=== PATIENT | male | born 1985 | race African-American/Black ===

== ENCOUNTER 2021-06-02 05:49 | Emergency (ER) | payer SELFPAY ==
[~2021-06-02] VITALS: Ht 170.2 cm; Wt 95.0 kg
[2021-06-02 06:15] VITALS: BP 138/90
--- NOTE | 2021-06-02 06:16 | PHYS DOC ---
General Adult EDM: Chief Complaint: DENTAL PROBLEM HPI: HPI: Patient is a 36 year old male who presents with right lower dental pain, he has had dental pain intermittently for some time, he has had a broken tooth for a few years. He reports that for the past few days he is having difficulty sleeping secondary to pain. He is used [id number] topical anesthetic, he has not taken any oral medication. No facial swelling, no gingival swelling, no drainage, no fever, no sore throat, voice changes, difficulty breathing, difficulty swallowing. He has contacted his dentist, and they are supposed to call him back to arrange an appointment for dental extraction, he has not yet heard back from them. He reports that the tooth has been broken for several years, and it was reportedly broken during another dental extraction procedure. Review of Systems: Review of Systems: Constitutional: Denies fever or chills. [] HENT: Denies nasal congestion or sore throat. Right lower dental pain. Respiratory: Denies cough or shortness of breath. [] Cardiovascular: Denies chest pain Musculoskeletal: Denies neck pain, back pain or joint pain. [] Integument: Denies rash. [] Neurologic: Denies headache or weakness Heart Score: C/O Chest Pain: No Risk Factors: Risk Factors: DM, Current or recent (<one month) smoker, HTN, HLP, family history of CAD, obesity. Risk Scores: Score 0 - 3: 2.5% MACE over next 6 weeks - Discharge Home Score 4 - 6: 20.3% MACE over next 6 weeks - Admit for Clinical Observation Score 7 - 10: 72.7% MACE over next 6 weeks - Early Invasive Strategies Physical Exam: PE: Constitutional: Well developed, well nourished, no acute distress, non-toxic appearance. [] HENT: Normocephalic, atraumatic, oropharynx is patent and clear, uvula midline, no facial or oral edema. No tongue edema. Right lower premolar with caries and partially broken tooth, no surrounding gingival erythema or edema, no drainage, no percussion tenderness. Mucous membranes are moist. No drooling or trismus. He is controlling his secretions well. His speech is clear and fluent, voice is not muffled. TMs are clear bilaterally. Eyes: Conjunctiva normal, no discharge. [] Neck: Trachea midline, neck is supple, no pathologic adenopathy, full range of motion Cardiovascular:Heart rate regular rhythm, no edema, warm and well-perfused Lungs & Thorax: Bilateral breath sounds clear to auscultation, no rales, rhonchi or wheezes, no stridor, equal chest rise, speaks in full and clear sentences Skin: Warm, dry, no erythema, no rash. [] Back: No tenderness, no CVA tenderness. [] Extremities: No limb deformity, gait is steady and nonantalgic Neurologic: Awake alert, oriented x3, no facial asymmetry, speech is clear and fluent, gross motor intact, gait is steady Psychologic: Affect normal, judgement normal, mood normal. [] EKG: EKG: [] Radiology/Procedures: Radiology/Procedures: [] Course & Med Decision Making: Course & Med Decision Making There is no indication for emergent imaging, labs at this time based on current clinical presentation. I ordered a dose of oral ibuprofen for him. He drove here, so no sedating medications could be given. I discussed that he needs to follow-up with his dentist for further evaluation treatment, definitive care. He is amenable to being prescribed hydrocodone for severe pain, he is also given a prescription for penicillin. I sent these to his preferred pharmacy. Home care instructions are given, return precautions are given. He verbalizes understanding. Uziel Disclaimer: Uziel Disclaimer: This electronic medical record was generated, in whole or in part, using a voice recognition dictation system. Departure Departure Impression: Primary Impression: Pain due to dental caries Disposition: 01 HOME / SELF CARE / HOMELESS Condition: GOOD Patient Instructions: Dental Caries, Dental Pain Additional Instructions: Take the full course of antibiotics as directed. Use the pain medication for se wisam pain only. You may take [id number] Tylenol or ibuprofen as needed for mild or more moderate pain. Return to the ER for severe facial swelling, temperature 100.4 or higher, difficulty breathing, inability to control secretions or problems swallowing or for any other concerns. Please follow-up with your dentist for further evaluation and treatment of your pain and of your cavity. Scripts Penicillin V Potassium (PENICILLIN V POTASSIUM) 500 Mg Tablet 1 TAB PO QID for 7 Days, #28 TAB Prov: KRISTAL RENNER DO 06/02/21 Hydrocodone Bit/Acetaminophen (HYDROCODONE-APAP 5-325 ) 1 Tab Tablet 1 TAB PO PRN Q6HRS PRN for PAIN, #15 TAB 0 Refills Prov: KRISTAL RENNER DO 06/02/21 KRISTAL RENNER DO Jun 02, 2021 06:16
[2021-06-02] MEDS ORDERED: IBUPROFEN 400 MG TABLET. PO ONE (06:30)
[2021-06-02] MEDS ORDERED: HYDR-2761 PO (06:51)
[2021-06-02] MEDS ORDERED: PENI500T PO (06:53)
== END 2021-06-02 06:58 | disposition home or self-care (01) ==
LOC: ER 05:49
DX: K02.9 Dental caries, unspecified (principal); K08.89 Other specified disorders of teeth and supporting structures
CPT/HCPCS: 99283